=== PATIENT | female | born 1980 | race American Indian/Alaskan Native ===

== ENCOUNTER 2018-09-08 12:51 | Emergency (ER) | payer OTHER ==
[2018-09-08 13:39] VITALS: BP 130/90
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
[2018-09-08] MEDS ORDERED: TORADOL IM ONE (15:43)
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
== END 2018-09-08 16:27 | disposition home or self-care (01) ==
LOC: ED 12:51
DX: M54.41 Lumbago with sciatica, right side (principal); K21.9 Gastro-esophageal reflux disease without esophagitis; V89.2XXA Person injured in unspecified motor-vehicle accident, traffic, initial encounter; Y93.89 Activity, other specified; Y92.488 Other paved roadways as the place of occurrence of the external cause; Y99.8 Other external cause status
CPT/HCPCS: 72100; 96372; 99283; J1885

== ENCOUNTER 2020-08-18 09:36 | Emergency (ER) | payer OTHER ==
[2020-08-18 09:51] VITALS: BP 127/82
[2020-08-18] MEDS ORDERED: dexAMETHasone 20 MG/5 ML VIAL IV ONE (11:08)
[2020-08-18] MEDS ORDERED: METOCLOPRAMIDE 10 MG/2 ML INJ IV ONE (11:08)
[2020-08-18] MEDS ORDERED: KETOROLAC 30 MG/1 ML INJ IV ONE (11:08)
[2020-08-18] MEDS ORDERED: diphenhydrAMINE 50 MG/ML VIAL IV ONE (11:08)
[2020-08-18] MEDS ORDERED: SODIUM CHLORIDE 0.9% 1000 ML 1,000 ML IV ONE (11:08)
--- NOTE | 2020-08-18 11:13 | Emergency Department Report ---
ED General Adult HPI - General Chief complaint: Headache Stated complaint: MIGRAINE/NAUSEA Time Seen by Provider: 08/18/20 10:21 Source: patient Mode of arrival: Ambulatory Limitations: No Limitations - History of Present Illness Initial comments: 39-year-old -[place] female patient presents with complaints of headaches for the past 3 years, with an episode starting last night around 4 AM. She reports the headaches seem to worsen around her cycle. Patient states she did see her primary care provider for her headaches a year ago and was diagnosed with a sinus infection at the time. Patient states her headaches are typically right-sided and behind her right eye and she does admit to watering of the eye. She rates her current headache as 8/10 in severity and denies any vision changes, confusion, memory loss, numbness/tingling/weakness in her limbs, or difficulty with speech/ambulation. No head trauma per patient. She denies any other past medical history. - Related Data Previous Rx's Medication Instructions Recorded Last Taken Type Baclofen [Lioresal] 10 mg PO TID #15 tab 09/08/18 Unknown Rx Naproxen [EC-Naproxen] 500 mg PO BID PRN #14 tablet. 09/08/18 Unknown Rx Butalb/Acetamin/Caff 50-325-40 1 tab PO Q8HR PRN #10 tablet 08/18/20 Unknown Rx [Fioricet 50-325-40] Allergies Allergy/AdvReac Type Severity Reaction Status Date / Time No Known Allergies Allergy Verified 08/18/20 09:47 ED Review of Systems ROS: Stated complaint: MIGRAINE/NAUSEA Other details as noted in HPI Constitutional: denies: chills, diaphoresis, fever, malaise, weakness Respiratory: denies: shortness of breath Gastrointestinal: nausea, vomiting. denies: abdominal pain, diarrhea, constipation, hematemesis, melena, hematochezia Neurological: headache. denies: weakness, numbness, paresthesias, confusion, abnormal gait Hematological/Lymphatic: denies: swollen glands ED Past Medical Hx - Past Medical History Hx Hypertension: No Hx GERD: Yes Hx Asthma: No - Social History Smoking Status: Current Every Day Smoker Substance Use Type: Alcohol - Medications Home Medications: Home Medications Medication Instructions Recorded Confirmed Last Taken Type Baclofen [Lioresal] 10 mg PO TID #15 tab 09/08/18 Unknown Rx Naproxen [EC-Naproxen] 500 mg PO BID PRN #14 tablet. 09/08/18 Unknown Rx Butalb/Acetamin/Caff 50-325-40 1 tab PO Q8HR PRN #10 tablet 08/18/20 Unknown Rx [Fioricet 50-325-40] ED Physical Exam - General Limitations: No Limitations General appearance: alert, in no apparent distress - Head Head exam: Present: atraumatic, normocephalic - Eye Eye exam: Present: normal appearance, PERRL, EOMI. Absent: scleral icterus - Neck Neck exam: Present: normal inspection - Respiratory Respiratory exam: Present: normal lung sounds bilaterally. Absent: respiratory distress - Cardiovascular Cardiovascular Exam: Present: regular rate, normal rhythm - GI/Abdominal GI/Abdominal exam: Present: soft. Absent: tenderness - Neurological Exam Neurological exam: Present: alert, oriented X3, CN II-XII intact, normal gait. Absent: motor sensory deficit - Expanded Neurological Exam Expanded Cerebellar function: Finger to Nose: Normal, Heel to Newberry: Normal, Romberg: Normal Sensory exam: Upper Extremity Light Touch: Normal, Lower Extremity Light Touch: Normal Motor strength exam: RUE: 5, LUE: 5, RLE: 5, LLE: 5 - Psychiatric Psychiatric exam: Present: normal affect, normal mood - Skin Skin exam: Present: warm, dry, intact, normal color. Absent: rash ED Course Vital Signs 08/18/20 08/18/20 09:50 11:24 Temperature 98.5 F Pulse Rate 68 Respiratory 20 16 Rate Blood Pressure 127/82 O2 Sat by Pulse 100 Oximetry ED Medical Decision Making - Lab Data Result diagrams: 08/18/20 11:26 08/18/20 11:26 Lab Results 08/18/20 08/18/20 08/18/20 Range/Units 11:26 11:26 11:26 WBC 9.2 (4.5-11.0) K/mm3 RBC 4.26 (3.65-5.03) M/mm3 Hgb 9.8 L (10.1-14.3) gm/dl Hct 31.1 (30.3-42.9) % MCV 73 L (79-97) fl MCH 23 L (28-32) pg MCHC 32 (30-34) % RDW 17.8 H (13.2-15.2) % Plt Count 189 (140-440) K/mm3 Lymph % (Auto) 14.6 (13.4-35.0) % Rowan % (Auto) 3.0 (0.0-7.3) % Eos % (Auto) 0.4 (0.0-4.3) % Baso % (Auto) 0.1 (0.0-1.8) % Lymph # (Auto) 1.3 (1.2-5.4) K/mm3 Rowan # (Auto) 0.3 (0.0-0.8) K/mm3 Eos # (Auto) 0.0 (0.0-0.4) K/mm3 Baso # (Auto) 0.0 (0.0-0.1) K/mm3 Seg Neutrophils % 81.9 H (40.0-70.0) % Seg Neutrophils # 7.5 (1.8-7.7) K/mm3 Sodium 142 (137-145) mmol/L Potassium 3.9 (3.6-5.0) mmol/L Chloride 107.0 (98-107) mmol/L Carbon Dioxide 25 (22-30) mmol/L Anion Gap 14 mmol/L BUN 10 (7-17) mg/dL Glucose 134 H (65-100) mg/dL Calcium 8.8 (8.4-10.2) mg/dL Total Bilirubin 0.20 (0.1-1.2) mg/dL AST 12 (5-40) units/L ALT 16 (7-56) units/L Alkaline Phosphatase 68 (35-129) units/L Total Protein 6.4 (6.3-8.2) g/dL Albumin 3.9 (3.9-5) g/dL Albumin/Globulin Ratio 1.6 % HCG, Qual Negative (Negative) - Medical Decision Making 39-year-old -[place] female patient presents with complaints of headaches for the past 3 years, with an episode starting last night around 4 AM. She reports the headaches seem to worsen around her cycle. Patient states she did see her primary care provider for her headaches a year ago and was diagnosed with a sinus infection at the time. Patient states her headaches are typically right-sided and behind her right eye and she does admit to watering of the eye. She rates her current headache as 8/10 in severity and denies any vision changes, confusion, memory loss, numbness/tingling/weakness in her limbs, or difficulty with speech/ambulation. No head trauma per patient. She denies any other past medical history. Mildly elevated glucose of 134 noted on CMP, otherwise labs are without significant acute abnormalities. Patient given Toradol, Decadron, Benadryl, Reglan, and 1 L normal saline. Patient headache has now resolved per patient. Recommend follow-up with neurology, referral provided. Patient is well- appearing, her vitals are within normal limits, she is stable for discharge home. Patient also follow-up with her PCP for glucose recheck. Discussed signs and symptoms that should prompt immediate return to the emergency department in detail with patient who verbalized understanding. Critical care attestation.: If time is entered above; I have spent that time in minutes in the direct care of this critically ill patient, excluding procedure time. ED Disposition Clinical Impression: Hyperglycemia Migraine Qualifiers: Migraine type: other Intractability: not intractable Disposition: DC- TO HOME OR SELFCARE Is pt being admited?: No Condition: Stable Instructions: Recurrent Migraine Headache, Cluster Headache Prescriptions: Butalb/Acetamin/Caff 50-325-40 [Fioricet 50-325-40] 1 tab PO Q8HR PRN #10 tablet PRN Reason: Headache Referrals: CINDY SALAZAR MD [Staff Physician] - 3-5 Days PRIMARY CARE, [Referring] - 3-5 Days Forms: Work/School Release Form(ED)
[2020-08-18 11:49] LABS: Basophils % (Auto) 0.1 % (0.0-1.8); Eosinophils % (Auto) 0.4 % (0.0-4.3); Hematocrit 31.1 % (30.3-42.9); Hemoglobin 9.8 gm/dl (10.1-14.3); Lymphocytes # (Auto) 1.3 K/mm3 (1.2-5.4); Lymphocytes % (Auto) 14.6 % (13.4-35.0); Mean Corpuscular HGB Conc 32 % (30-34); Mean Corpuscular Volume 73 fl (79-97); Monocytes # (Auto) 0.3 K/mm3 (0.0-0.8); Platelet Count 189 K/mm3 (140-440); Red Blood Count 4.26 M/mm3 (3.65-5.03); Red Cell Distribution Width 17.8 % (13.2-15.2)
[2020-08-18 12:13] LABS: Alanine Aminotransferase 16 units/L (7-56); Albumin 3.9 g/dL (3.9-5); Blood Urea Nitrogen 10 mg/dL (7-17); Calcium 8.8 mg/dL (8.4-10.2); Hemolysis Index 3
[2020-08-18 12:35] LABS: BUN/Creatinine Ratio 20
== END 2020-08-18 13:57 | disposition home or self-care (01) ==
LOC: ED 09:36
DX: G43.909 Migraine, unspecified, not intractable, without status migrainosus (principal); R73.9 Hyperglycemia, unspecified; K21.9 Gastro-esophageal reflux disease without esophagitis; F17.200 Nicotine dependence, unspecified, uncomplicated; Z79.899 Other long term (current) drug therapy
CPT/HCPCS: 36415; 80053; 84703; 85025; 96361; 96374; 96375; 99283; J1100; J1200; J1885; J2765; J7030

== ENCOUNTER 2021-06-15 19:25 | Emergency (ER) | payer OTHER ==
[2021-06-15 20:14] VITALS: BP 164/90
[2021-06-16] MEDS ORDERED: traMADol 50 MG TAB PO ONE (02:08)
--- NOTE | 2021-06-16 02:38 | XRay Report ---
Right hand 3 views INDICATION: Right hand pain IMPRESSION: Moderate edema is identified along the dorsal aspect of the right hand. No underlying fra cture or subluxation. Signer Name: Colton Lawson MD Signed: 06/16/2021 2:34 AM Workstation Name: [id number]
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
== END 2021-06-16 04:15 | disposition home or self-care (01) ==
LOC: ED 19:25
DX: S63.591A Other specified sprain of right wrist, initial encounter (principal); K21.9 Gastro-esophageal reflux disease without esophagitis; Z72.89 Other problems related to lifestyle; Z79.899 Other long term (current) drug therapy; V87.7XXA Person injured in collision between other specified motor vehicles (traffic), initial encounter; Y93.89 Activity, other specified; Y92.488 Other paved roadways as the place of occurrence of the external cause; Y99.8 Other external cause status
CPT/HCPCS: 99283